=== PATIENT | male | born 2000 ===

== ENCOUNTER 2024-12-25 19:56 | Emergency (ER) | payer SELFPAY ==
[2024-12-25] MEDS: Diphtheria,Pertussis(Acell),Tetanus Vaccine 0.5 ML Syringe IM ONE (20:24)
== END 2024-12-25 20:48 | disposition home or self-care (01) ==
LOC: DL.ED 19:56
DX: S61.210A Laceration without foreign body of right index finger without damage to nail, initial encounter (principal); Z23 Encounter for immunization; W26.0XXA Contact with knife, initial encounter; Y93.89 Activity, other specified
CPT/HCPCS: 12002; 90471; 90715; 99282; 99283-25